=== PATIENT | male | born 1950 ===

== ENCOUNTER 2021-05-20 11:00 | Inpatient (IN) | payer OTHER ==
[2021-05-20] MEDS ORDERED: GEMFIBROZIL600 MG (13:26)
[2021-05-20] MEDS ORDERED: HYDROCHLOROTHIA25 MG (13:26)
[2021-05-20] MEDS ORDERED: GLIMEPIRIDE4 M1 (13:26)
[2021-05-20] MEDS ORDERED: GLUMETZA1000 MG (13:26)
[2021-05-20] MEDS ORDERED: LOSARTAN POTAS100 MG (13:27)
[2021-05-25] MEDS ORDERED: SIMVASTATIN20 MG (08:08)
[2021-05-25] MEDS ORDERED: ALLOPURINOL100 MG (08:08)
[2021-05-25] MEDS ORDERED: COLCHICINE0.6 MG (08:08)
== END 2021-05-26 16:50 | disposition home or self-care (01) | DRG 349 ==
LOC: ADM 11:00 → CIR.AMB 11:00 → EDSTATUS 11:00 → SURH 11:00 → O/R 05-25 05:52 → SURH 05-25 10:30
PROVIDERS: ADMIT Colon & Rectal Surgery; ATTEND Colon & Rectal Surgery
PROC: 3E0F7SF Introduction of Other Gas into Respiratory Tract, Via Natural or Artificial Opening (ICD-10-PCS; 2021-05-25)
PROC: 0DBP7ZZ Excision of Rectum, Via Natural or Artificial Opening (ICD-10-PCS; principal; 2021-05-25 07:00)
DX: C20 Malignant neoplasm of rectum (principal); D12.8 Benign neoplasm of rectum; I10 Essential (primary) hypertension; E11.9 Type 2 diabetes mellitus without complications; Z79.4 Long term (current) use of insulin; Z86.010 Personal history of colon polyps